=== PATIENT | male | born 1985 | race Two or more races ===

== ENCOUNTER 2019-03-11 22:18 | Emergency (ER) | payer MEDICAID, OTHER ==
[~2019-03-11] VITALS: Ht 210.8 cm; Wt 113.4 kg
[2019-03-11] MEDS ORDERED: IBUPROFEN 800 MG TABLET PO ONE (23:30)
[2019-03-11] MEDS ORDERED: IBUPROFEN 800 MG TABLET ONE (23:47)
--- NOTE | 2019-03-12 00:57 | NUR ---
Patient discharged to home in stable conditon. Written and verbal after care instructions given. Patient verbalizes understanding of instructions. WALKED OUT OF ER WITH NO DISTRESS NOTED
[2019-03-12 00:58] VITALS: BP 100/66
== END 2019-03-12 00:58 | disposition home or self-care (01) ==
LOC: ER 22:18
DX: S92.422A Displaced fracture of distal phalanx of left great toe, initial encounter for closed fracture (principal); W23.0XXA Caught, crushed, jammed, or pinched between moving objects, initial encounter; Y93.89 Activity, other specified; Y92.89 Other specified places as the place of occurrence of the external cause; Y99.8 Other external cause status
CPT/HCPCS: 73630; A4663

== ENCOUNTER 2019-05-18 21:24 | Emergency (ER) | payer OTHER ==
[~2019-05-18] VITALS: Ht 213.4 cm; Wt 113.4 kg
--- NOTE | 2019-05-18 22:14 | NUR ---
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
[2019-05-18] MEDS ORDERED: IBUPROFEN 800 MG TABLET PO ONE (22:15)
[2019-05-18] MEDS ORDERED: IBUPROFEN 800 MG TABLET ONE (22:16)
--- NOTE | 2019-05-18 23:13 | NUR ---
Patient discharged to home in stable conditon. Written and verbal after care instructions given. Patient verbalizes understanding of instructions. Patient self ambulatory with steady gait. patient has good understanding of health and medical treatment. Patient denies any pain/discomfort at this time.
[2019-05-18 23:17] VITALS: BP 114/70
== END 2019-05-18 23:18 | disposition home or self-care (01) ==
LOC: ER 21:24
DX: S93.502A Unspecified sprain of left great toe, initial encounter (principal); X58.XXXA Exposure to other specified factors, initial encounter; Y93.89 Activity, other specified; Y92.39 Other specified sports and athletic area as the place of occurrence of the external cause; Y99.8 Other external cause status
CPT/HCPCS: 73630; A4663

== ENCOUNTER 2019-05-31 03:22 | Emergency (ER) | payer OTHER ==
[~2019-05-31] VITALS: Ht 213.4 cm; Wt 115.7 kg
--- NOTE | 2019-05-31 03:33 | NUR ---
Dr. Adorno at bedside for MSE.
[2019-05-31] MEDS ORDERED: ONDANSETRON 4 MG/2 ML VIAL ONE (03:47)
[2019-05-31] MEDS ORDERED: MORPHINE SULFATE 4 MG/1 ML DISP.SYRIN ONE (03:47)
[2019-05-31 03:50] LABS: BASOPHILS % (AUTO) 0.6 % (0.0-2.0); EOSINOPHILS # (AUTO) 0.1 K/uL (0.0-0.7); EOSINOPHILS % (AUTO) 1.9 % (0.0-7.0); HEMATOCRIT 39.2 % (36.7-47.1); HEMOGLOBIN 13.4 g/dL (12.5-16.3); LYMPHOCYTES # (AUTO) 1.7 K/uL (20.0-40.0); LYMPHOCYTES % (AUTO) 34.7 % (20.5-51.5); MEAN CORPUSCULAR HEMOGLOBIN 31.8 uug (23.8-33.4); MEAN CORPUSCULAR HGB CONC 34 g/dL (32.5-36.3); MONOCYTES # (AUTO) 0.4 K/uL (2.0-10.0); NEUTROPHILS # (AUTO) 2.6 K/uL (1.8-8.9); NEUTROPHILS % (AUTO) 53.8 % (38.5-71.5); PLATELET COUNT (AUTO) 161 K/uL (152-348); RED BLOOD CELL COUNT(AUTO) 4.22 MIL/uL (4.06-5.63); WHITE BLOOD COUNT (AUTO) 4.8 K/uL (3.6-10.2)
[2019-05-31] MEDS: MORPHINE SULFATE 2 MG/1 ML DISP.SYRIN IV ONE (03:50)
[2019-05-31] MEDS: ONDANSETRON 4 MG/2 ML VIAL IV ONE (03:50)
[2019-05-31 04:02] LABS: CREATININE 1.5 mg/dL (0.6-1.3); POTASSIUM 3.6 mmol/L (3.5-5.1)
[2019-05-31 04:14] LABS: BILIRUBIN,DIRECT 0.1 mg/dL (0.0-0.2); BILIRUBIN,TOTAL 0.3 mg/dL (0.2-1.0); TOTAL PROTEIN, SERUM 7.3 g/dL (6.4-8.2)
[2019-05-31] MEDS ORDERED: IV NORMAL SALINE 250 ML IV ONE (04:20)
[2019-05-31] MEDS ORDERED: IOHEXOL 300MG/ML 100 ML INFUS..BTL ONE (04:20)
[2019-05-31] MEDS ORDERED: SWABABLE VALVE TRANSFER SET EA MC ONE (04:20)
--- NOTE | 2019-05-31 04:23 | NUR ---
Patient out of unit for ct angio via gurny.
--- NOTE | 2019-05-31 04:37 | NUR ---
Pt back to ER from CT.
[2019-05-31] MEDS: IV NORMAL SALINE 1000 ML BAG IV ONE (04:48)
[2019-05-31] MEDS: ASPIRIN 325 MG TABLET PO ONE (05:56)
[2019-05-31] MEDS ORDERED: ASPIRIN 325 MG TABLET ONE (05:59)
--- NOTE | 2019-05-31 07:07 | NUR ---
Report given to Phyllis TAMAYO dayshift.
--- NOTE | 2019-05-31 07:56 | NUR ---
Patient discharged to home in stable conditon. Written and verbal after care instructions given. Patient verbalizes understanding of instructions.pt walks in steady gait. pt deneis sob or dizziness.
[2019-05-31 07:58] VITALS: BP 110/58
== END 2019-05-31 07:59 | disposition home or self-care (01) ==
LOC: ER 03:23
DX: R07.89 Other chest pain (principal); R42 Dizziness and giddiness
CPT/HCPCS: 36415; 71275; 80048; 80076; 83880; 84484 ×2; 85025; 85730; 93005 ×2; 96361; 96374; 96375; 99284; J2270; J2405; Q9967; 70030-TC; A4663; J7030; J7050

== ENCOUNTER 2020-12-16 21:34 | Emergency (ER) | payer OTHER ==
[~2020-12-16] VITALS: Ht 213.4 cm; Wt 113.4 kg
--- NOTE | 2020-12-16 21:48 | NUR ---
Dr. Dugan at bedside for MSE.
[2020-12-16] MEDS: KETOROLAC TROMETHAMINE 30 MG INJ IVP ONE (22:05)
[2020-12-16] MEDS: ACETAMINOPHEN 325 MG TABLET PO ONE (22:09)
[2020-12-16] MEDS ORDERED: ACETAMINOPHEN 325 MG TABLET ONE (22:13)
[2020-12-16 22:19] LABS: CREATININE 1.1 mg/dL (0.6-1.3); POTASSIUM 3.6 mmol/L (3.5-5.1)
[2020-12-16 22:25] LABS: BASOPHILS % (AUTO) 0.9 % (0.0-2.0); BILIRUBIN,TOTAL 0.3 mg/dL (0.2-1.0); EOSINOPHILS # (AUTO) 0.2 K/uL (0.0-0.7); EOSINOPHILS % (AUTO) 4.1 % (0.0-7.0); HEMATOCRIT 39.6 % (36.7-47.1); HEMOGLOBIN 13.3 g/dL (12.5-16.3); LYMPHOCYTES # (AUTO) 0.7 K/uL (20.0-40.0); LYMPHOCYTES % (AUTO) 15.6 % (20.5-51.5); MAGNESIUM 2.3 mg/dL (1.8-2.4); MEAN CORPUSCULAR HEMOGLOBIN 31.1 uug (23.8-33.4); MEAN CORPUSCULAR HGB CONC 34 g/dL (32.5-36.3); MEAN CORPUSCULAR VOLUME 92.6 fL (73.0-96.2); MONOCYTES # (AUTO) 0.7 K/uL (2.0-10.0); MONOCYTES % (AUTO) 15.6 % (0.0-11.0); NEUTROPHILS # (AUTO) 2.8 K/uL (1.8-8.9); NEUTROPHILS % (AUTO) 63.8 % (38.5-71.5); PLATELET COUNT (AUTO) 176 K/uL (152-348); RED BLOOD CELL COUNT(AUTO) 4.27 MIL/uL (4.06-5.63); TOTAL PROTEIN, SERUM 7.4 g/dL (6.4-8.2); WHITE BLOOD COUNT (AUTO) 4.5 K/uL (3.6-10.2)
[2020-12-16 22:29] LABS: NEUTROPHILS % (MANUAL) 64 % (42-75)
[2020-12-16 22:30] LABS: BASOPHILS % (MANUAL) 1 % (0-2); EOSINOPHILS % (MANUAL) 4 % (0-8); LYMPHOCYTES % (MANUAL) 16 % (20-40); MONOCYTES % (MANUAL) 15 % (2-10)
[2020-12-16] MEDS ORDERED: ACET1TAB23 PO (23:25)
--- NOTE | 2020-12-16 23:29 | NUR ---
Patient discharged to home in stable condition. Written and verbal after care instructions given. Patient verbalizes understanding of instructions. Stressed follow up or return to ER for worsening s/s. Patient out of ER with steady gait, no acute signs of distress, VSS, all belongings taken, provided a copy of lab results.
[2020-12-16 23:30] VITALS: BP 129/74
== END 2020-12-16 23:30 | disposition home or self-care (01) ==
LOC: ER 21:41
DX: R51.9 Headache, unspecified (principal); B34.9 Viral infection, unspecified; Z20.822 Contact with and (suspected) exposure to COVID-19
CPT/HCPCS: 36415; 70030-TC; 83735; 85025; A4663

== ENCOUNTER 2022-07-28 14:12 | Emergency (ER) | payer OTHER ==
[~2022-07-28] VITALS: Ht 213.4 cm; Wt 111.6 kg
[~2022-07-28 14:12] MED LIST: ACET1TAB23 PO
[2022-07-28] MEDS ORDERED: diphenhydrAMINE 50 MG/1 ML VIAL IV ONE (15:00)
[2022-07-28] MEDS ORDERED: ACETAMINOPHEN ES 500 MG TABLET PO ONE (15:00)
[2022-07-28] MEDS ORDERED: METOCLOPRAMIDE HCL 10 MG/2 ML VIAL IV ONE (15:00)
[2022-07-28] MEDS ORDERED: IV NORMAL SALINE 1000 ML BAG IV ONE (15:00)
[2022-07-28] MEDS ORDERED: diphenhydrAMINE 50 MG/1 ML VIAL ONE (15:21)
[2022-07-28] MEDS ORDERED: ACETAMINOPHEN ES 500 MG TABLET ONE (15:21)
[2022-07-28] MEDS ORDERED: METOCLOPRAMIDE HCL 10 MG/2 ML VIAL ONE (15:21)
--- NOTE | 2022-07-28 17:51 | NUR ---
Patient presents to the ER, S/P Head injury at home. Patient C/O head and slept eye pain. Patient A/O X 4, seen by the MD, CT-Head ordered and completed. Patient medicated as per MD orders (see eMAR). Patient seen and cleared for discharge home. Discharge instructions provided. Patient is stable, left ambulatory.
== END 2022-07-28 17:51 | disposition home or self-care (01) ==
LOC: ER 14:17
DX: R51.9 Headache, unspecified (principal); R04.0 Epistaxis; S09.90XA Unspecified injury of head, initial encounter; W22.09XA Striking against other stationary object, initial encounter; Y92.89 Other specified places as the place of occurrence of the external cause; Z86.69 Personal history of other diseases of the nervous system and sense organs
CPT/HCPCS: 99284; 96374; 70450; J1200; J2765; J7040; A4663; A9150